=== PATIENT | male | born 1995 | race Hispanic/Latino ===

== ENCOUNTER 2021-12-14 22:02 | Emergency (ER) | payer BC, SELFPAY ==
[2021-12-14] MEDS ORDERED: BACI/NEOMYCIN/POLY OINT 15GM TOP ONE (22:32)
[2021-12-14] MEDS ORDERED: LIDOCAINE 1% MPF 5 ML VIAL ONE (22:32)
[2021-12-14] MEDS ORDERED: CEFTRIAXONE 1000 MG/VIAL ONE (22:32)
[2021-12-14] MEDS ORDERED: ACETAMINOPHEN 500 MG TAB ONE (22:32)
--- NOTE | 2021-12-14 22:41 | ER ---
Nurse's Notes [facility] Name: Dave Rucker Age: 26 yrs Sex: Male : 1995 Arrival Date: 12/14/2021 Time: 22:07 Bed 18 Private MD: Diagnosis: Infected right middle middle finger Presentation: 12/14 22:13 Chief complaint: Patient states: "It looked it poison raffy since last Wednesday, but tw5 yesterday it started looking weird. Today my hand started to swell, and it pain has been shooting up my arm pit.". Coronavirus screen: Vaccine status: Patient reports being unvaccinated. Ebola Screen: Patient negative for fever greater than or equal to 101.5 degrees Fahrenheit, and additional compatible Ebola Virus Disease symptoms Patient denies exposure to infectious person. Patient denies travel to an Ebola-affected area in the 21 days before illness onset. Initial Sepsis Screen: Does the patient meet any 2 criteria? No. Patient's initial sepsis screen is negative. Does the patient have a suspected source of infection? Yes: Skin breakdown/wound. Risk Assessment: Do you want to hurt yourself or someone else? Patient reports no desire to harm self or others. Onset of symptoms is unknown. 22:13 Method Of Arrival: Ambulatory tw5 22:13 Acuity: CARSON 3 tw5 Triage Assessment: 22:14 General: Appears in no apparent distress. Behavior is calm, cooperative, appropriate tw5 for age. Pain: Pain currently is 6 out of 10 on a pain scale. Derm: Wound noted palmar aspect of proximal phalanx of right middle finger. Historical: - Allergies: 22:14 PENICILLINS; tw5 - Home Meds: 22:14 None [Active]; tw5 - PMHx: 22:14 None; tw5 - PSHx: 22:14 None; tw5 - Immunization history:: Flu vaccine is up to date. - Social history:: Smoking status: Patient denies any tobacco usage or history of. Screenin:16 Abuse screen: Denies threats or abuse. Denies injuries from another. Nutritional tw5 screening: No deficits noted. Nutritional screening: No deficits noted. Tuberculosis screening: No symptoms or risk factors identified. Fall Risk None identified. Assessment: 22:26 Reassessment: Patient appears in no apparent distress at this time. No changes from lg3 previously documented assessment. Patient and/or family updated on plan of care and expected duration. Pain level reassessed. Patient is alert, oriented x 3, equal unlabored respirations, skin warm/dry/pink. Derm: Rash noted that is draining pus, itchy, papular, raised, on right hand and palmar aspect of proximal phalanx of right middle finger. Vital Signs: 22:12 BP 118 / 71; Pulse 98; Resp 18; Temp 98.6(O); Pulse Ox 98% on R/A; Weight 90.72 kg; tw5 Height 5 ft. 6 in. (167.64 cm); 23:02 BP 122 / 76; Pulse 88; Temp 97.4(TE); Pulse Ox 100% on R/A; Pain 0/10; lg3 22:12 Body Mass Index 32.28 (90.72 kg, 167.64 cm) tw5 ED Course: 22:07 Patient arrived in ED. es 22:14 Triage completed. tw5 22:14 Arm band placed on right wrist. tw5 22:17 Amadeo Michelle MD is Attending Physician. pkl 22:26 Patient has correct armband on for positive identification. Bed in low position. Call lg3 light in reach. Side rails up X 1. 22:26 No provider procedures requiring assistance completed. Patient did not have IV access lg3 during this emergency room visit. 22:27 Tyron Rivas, RN is Primary Nurse. sv1 Administered Medications: 22:45 Drug: Rocephin (cefTRIAXone) 1 grams Route: IM; Site: left deltoid; lg3 22:46 Follow up: Response: No adverse reaction lg3 22:45 Drug: Tylenol 1000 mg Route: PO; lg3 22:46 Follow up: Response: No adverse reaction lg3 Outcome: 22:40 Discharge ordered by . pkl 23:02 Discharged to home ambulatory. lg3 23:02 Condition: stable 23:02 Discharge instructions given to patient, Prescriptions given X 1. 23:07 Patient left the ED. lg3 Signatures: Amadeo Michelle MD MD pkl Eileen Zamarripa Lacie, RN RN lg3 Doug Arianne tw5 Tyron Rivas, EMA RN sv1 Corrections: (The following items were deleted from the chart) 22:19 22:13 Acuity: CARSON 4 tw5 tw5
--- NOTE | 2021-12-14 22:41 | EDPHYS ---
Physician Documentation [facility] Name: Dave Rucker Age: 26 yrs Sex: Male : 1995 Arrival Date: 12/14/2021 Time: 22:07 Bed 18 Private MD: ED Physician Amadeo Michelle HPI: 12/14 22:28 This 26 yrs old Male presents to ER via Ambulatory with complaints of Blister pkl on finger, pain in arm pit. 22:28 The patient or guardian reports Patient noticed blister like lesions on the ulnar pkl aspect of the proximal phalanx right middle finger about 6 days ago. Yesterday the area became infected and painful. Patient said the pain is radiating up into his right arm pit.. Historical: - Allergies: 22:14 PENICILLINS; tw5 - Home Meds: 22:14 None [Active]; tw5 - PMHx: 22:14 None; tw5 - PSHx: 22:14 None; tw5 - Immunization history:: Flu vaccine is up to date. - Social history:: Smoking status: Patient denies any tobacco usage or history of. ROS: 22:28 Eyes: Negative for injury, pain, redness, and discharge, ENT: Negative for injury, pkl pain, and discharge, Neck: Negative for injury, pain, and swelling, Cardiovascular: Negative for chest pain, palpitations, and edema, Respiratory: Negative for shortness of breath, cough, wheezing, and pleuritic chest pain, Abdomen/GI: Negative for abdominal pain, nausea, vomiting, diarrhea, and constipation, Back: Negative for injury and pain, : Negative for injury, bleeding, discharge, and swelling. 22:28 MS/extremity: Positive for infected area ulnar aspect proximal phalanx right middle finger.. 22:28 Neuro: Negative for altered mental status, loss of consciousness. Exam: 22:28 Head/Face: Normocephalic, atraumatic. Eyes: Pupils equal round and reactive to light, pkl extra-ocular motions intact. Lids and lashes normal. Conjunctiva and sclera are non-icteric and not injected. Cornea within normal limits. Periorbital areas with no swelling, redness, or edema. ENT: Nares patent. No nasal discharge, no septal abnormalities noted. Tympanic membranes are normal and external auditory canals are clear. Oropharynx with no redness, swelling, or masses, exudates, or evidence of obstruction, uvula midline. Mucous membranes moist. Neck: Trachea midline, no thyromegaly or masses palpated, and no cervical lymphadenopathy. Supple, full range of motion without nuchal rigidity, or vertebral point tenderness. No Meningismus. Chest/axilla: Normal chest wall appearance and motion. Nontender with no deformity. No lesions are appreciated. Cardiovascular: Regular rate and rhythm with a normal S1 and S2. No gallops, murmurs, or rubs. Normal PMI, no JVD. No pulse deficits. Respiratory: Lungs have equal breath sounds bilaterally, clear to auscultation and percussion. No rales, rhonchi or wheezes noted. No increased work of breathing, no retractions or nasal flaring. Abdomen/GI: Soft, non-tender, with normal bowel sounds. No distension or tympany. No guarding or rebound. No evidence of tenderness throughout. Back: No spinal tenderness. No costovertebral tenderness. Full range of motion. 22:28 Musculoskeletal/extremity: Extremities: grossly normal except: noted in the right middle finger: pain, swelling, infected area noted. 22:28 Neuro: Orientation: is normal, Mentation: is normal, Cranial nerves: grossly normal, pkl Cerebellar function: is grossly normal, Motor: is normal, Sensation: is normal, Gait: is steady. Vital Signs: 22:12 BP 118 / 71; Pulse 98; Resp 18; Temp 98.6(O); Pulse Ox 98% on R/A; Weight 90.72 kg; tw5 Height 5 ft. 6 in. (167.64 cm); 23:02 BP 122 / 76; Pulse 88; Temp 97.4(TE); Pulse Ox 100% on R/A; Pain 0/10; lg3 22:12 Body Mass Index 32.28 (90.72 kg, 167.64 cm) tw5 MDM: 22:17 Patient medically screened. pkl 22:39 Data reviewed: vital signs. pkl Administered Medications: 22:45 Drug: Rocephin (cefTRIAXone) 1 grams Route: IM; Site: left deltoid; lg3 22:46 Follow up: Response: No adverse reaction lg3 22:45 Drug: Tylenol 1000 mg Route: PO; lg3 22:46 Follow up: Response: No adverse reaction lg3 Disposition Summary: 12/14/21 22:40 Discharge Ordered Location: Home pkl Problem: new pkl Symptoms: are unchanged pkl Condition: Stable pkl Diagnosis - Infected right middle middle finger pkl Followup: pkl - With: Private Physician - When: 2 - 3 days - Reason: Re-evaluation by your physician Discharge Instructions: - Discharge Summary Sheet pkl Forms: - Medication Reconciliation Form pkl - Thank You Letter pkl - Antibiotic Education pkl - Prescription Opioid Use pkl Prescriptions: - Clindamycin HCl 300 mg Oral Capsule - take 1 capsule by ORAL route every 6 hours for 10 days; 28 capsule; Refills: 0, pkl Product Selection Permitted Signatures: Amadeo Michelle MD MD pkl Nadja Henley RN RN lg3 Arianne Camacho tw5
[2021-12-15 04:53] VITALS: BP 122/76; TEMP 97.4; O2SAT 100
== END 2021-12-14 23:07 | disposition home or self-care (01) ==
LOC: ER 22:02
DX: L08.9 Local infection of the skin and subcutaneous tissue, unspecified (principal); Z88.0 Allergy status to penicillin
CPT/HCPCS: 96372; 99283

== ENCOUNTER 2022-04-05 16:39 | Emergency (ER) | payer SELFPAY ==
[2022-04-05] MEDS ORDERED: DIAZEPAM 10 MG/2 ML INJ SYRINGE ONE (18:13)
[2022-04-05] MEDS ORDERED: KETOROLAC 30 MG/ML INJ ONE (18:13)
[2022-04-05] MEDS ORDERED: LIDOCAINE 4% PATCH ONE (18:14)
--- NOTE | 2022-04-05 18:26 | EDPHYS ---
Physician Documentation [facility] Name: Dave Rucker Age: 27 yrs Sex: Male : 1995 Arrival Date: 04/05/2022 Time: 16:40 Bed 6 Private MD: ED Physician Kimmy Mcneal HPI: 04/05 18:10 This 27 yrs old Male presents to ER via Ambulatory with complaints of Neck and cp Upper Back Pain. 18:10 The patient or guardian complains of decreased range of motion, pain, that is acute, cp tenderness, stiffness. The symptoms are located right side lateral neck. Onset: The symptoms/episode began/occurred yesterday morning. Context: The neck injury/problem resulted from from unknown cause. Associated signs and symptoms: The patient has no apparent associated signs or symptoms. 18:10 The pain does not radiate. cp 18:10 Modifying factors: the symptoms are aggravated by turning head to right. Severity of cp symptoms: in the emergency department the symptoms are unchanged, despite home interventions. Historical: - Allergies: 17:09 PENICILLINS; jb4 - Home Meds: 17:09 None [Active]; jb4 - PMHx: 17:09 None; jb4 - PSHx: 17:09 None; jb4 - Immunization history:: Adult Immunizations up to date. - Social history:: Smoking status: Patient denies any tobacco usage or history of. Patient uses alcohol, occasionally. Patient/guardian denies using street drugs, but used to use street drugs. ROS: 18:15 Neck: Positive for pain with movement, pain at rest, stiffness, tenderness, Negative cp for injury or acute deformity, bony tenderness. 18:15 Eyes: Negative for injury, pain, redness, and discharge. cp 18:15 Constitutional: Negative for body aches, chills, fever, poor PO intake. 18:15 ENT: Negative for drainage from ear(s), ear pain, sore throat, difficulty swallowing, difficulty handling secretions. 18:15 Cardiovascular: Negative for chest pain, edema, palpitations. 18:15 Respiratory: Negative for cough, shortness of breath, wheezing. 18:15 Abdomen/GI: Negative for abdominal pain, nausea, vomiting, and diarrhea. 18:15 Back: Negative for pain at rest, pain with movement. 18:15 Neuro: Negative for altered mental status, headache. 18:15 All other systems are negative. Exam: 18:20 Constitutional: The patient appears in no acute distress, alert, awake, non-toxic, well cp developed, well nourished, uncomfortable. 18:20 Head/Face: Normocephalic, atraumatic. cp 18:20 Eyes: Periorbital structures: appear normal, Conjunctiva: normal, no exudate, no injection, Sclera: no appreciated abnormality, Lids and lashes: appear normal, bilaterally. 18:20 Neck: C-spine: vertebral tenderness, is not appreciated, crepitus, is not appreciated, ROM/movement: pain, that is moderate, with rotation to the right, limited range of motion, that is moderate, when rotating to the right, Meningeal signs: are not present, Lymph nodes: no appreciated lymphadenopathy. 18:20 Chest/axilla: Inspection: normal. 18:20 Cardiovascular: Rate: normal, Rhythm: regular, Pulses: Pulses are 2+ in right radial artery and left radial artery. 18:20 Respiratory: the patient does not display signs of respiratory distress, Respirations: normal, no use of accessory muscles, no retractions, labored breathing, is not present, Breath sounds: are clear throughout, no decreased breath sounds, no stridor, no wheezing. 18:20 Abdomen/GI: Exam negative for discomfort, distension, guarding, Inspection: abdomen appears normal. 18:20 Back: pain, is absent, ROM is normal. 18:20 Musculoskeletal/extremity: Exam is negative for decreased range of motion, deformity, injury, ROM: no acute changes. 18:20 Neuro: Orientation: to person, place \T\ time. Mentation: is normal, Motor: moves all fours, strength is normal, Sensation: is normal. Vital Signs: 17:06 BP 117 / 75; Pulse 90; Resp 16; Temp 98.0(O); Pulse Ox 96% on R/A; Weight 90.72 kg (R); jb4 Height 5 ft. 6 in. (167.64 cm) (R); Pain 8/10; 17:06 Body Mass Index 32.28 (90.72 kg, 167.64 cm) jb4 MDM: 17:43 Patient medically screened. cp 18:00 Differential diagnosis: Cervical Disc Herniation cervical strain, Spondylolisthesis cp Spondylosis subluxation, torticollis. 18:00 Counseling: I had a detailed discussion with the patient and/or guardian regarding: the cp historical points, exam findings, and any diagnostic results supporting the discharge/admit diagnosis, the need for outpatient follow up, a family practitioner, to return to the emergency department if symptoms worsen or persist or if there are any questions or concerns that arise at home. Response to treatment: the patient's symptoms have mildly improved after treatment. 18:25 Data reviewed: vital signs, nurses notes, and as a result, I will discharge patient. cp Administered Medications: 18:17 Drug: Lidoderm Patch 5 % (700 mg/patch) 1 patches Route: Topical; Site: affected area; aa5 18:39 Follow up: Response: No adverse reaction; Medication administered at discharge. jl7 18:18 Drug: Ketorolac 60 mg Route: IM; Site: left gluteus; aa5 18:39 Follow up: Response: No adverse reaction; Medication administered at discharge. jl7 18:19 Drug: Diazepam 5 mg Route: IM; Site: right gluteus; aa5 18:38 Follow up: Response: No adverse reaction; Medication administered at discharge. jl7 Disposition Summary: 04/05/22 18:26 Discharge Ordered Location: Home cp Problem: new cp Symptoms: have improved cp Condition: Stable cp Diagnosis - Cervicalgia cp Followup: cp - With: Private Physician - When: 2 - 3 days - Reason: Worsening of condition Discharge Instructions: - Discharge Summary Sheet cp - Muscle Strain cp - Neck Exercises cp - RICE Therapy for Routine Care of Injuries cp Forms: - Medication Reconciliation Form cp - Thank You Letter cp - Antibiotic Education cp - Prescription Opioid Use cp Prescriptions: - Cyclobenzaprine 10 mg Oral Tablet - take 1 tablet by ORAL route every 8 hours As needed; 20 tablet; Refills: 0, cp Product Selection Permitted - Lidoderm 5 % Topical adhesive patch,medicated - apply 1 patch by TOPICAL route once daily; 1 box; Refills: 0, Product Selection cp Permitted - Diclofenac Sodium 75 mg Oral tablet,delayed release (DR/EC) - take 1 tablet by ORAL route 2 times per day; 20 tablet; Refills: 0, Product cp Selection Permitted Signatures: Magdalena Sanchez RN RN aa5 Phu Posada PA PA Hunter Altamirano, RN RN jb4 Willow Alexis RN jl7
--- NOTE | 2022-04-05 18:26 | ER ---
Nurse's Notes [facility] Name: Dave Rucker Age: 27 yrs Sex: Male : 1995 Arrival Date: 04/05/2022 Time: 16:40 Bed 6 Private MD: Diagnosis: Cervicalgia Presentation: 04/05 17:06 Chief complaint: Patient states: yesterday morning I woke up and feel like I jerked my jb4 head and now I am having trouble moving my head. It started in my shoulder and its progressing to my arm. Coronavirus screen: At this time, the client does not indicate any symptoms associated with coronavirus-19. Ebola Screen: No symptoms or risks identified at this time. Initial Sepsis Screen: Does the patient meet any 2 criteria? No. Patient's initial sepsis screen is negative. Does the patient have a suspected source of infection? No. Patient's initial sepsis screen is negative. Risk Assessment: Do you want to hurt yourself or someone else? Patient reports no desire to harm self or others. Onset of symptoms was April 05, 2022. Transition of care: patient was not received from another setting of care. 17:06 Method Of Arrival: Ambulatory jb4 17:06 Acuity: CARSON 4 jb4 Historical: - Allergies: 17:09 PENICILLINS; jb4 - Home Meds: 17:09 None [Active]; jb4 - PMHx: 17:09 None; jb4 - PSHx: 17:09 None; jb4 - Immunization history:: Adult Immunizations up to date. - Social history:: Smoking status: Patient denies any tobacco usage or history of. Patient uses alcohol, occasionally. Patient/guardian denies using street drugs, but used to use street drugs. Screenin:45 Abuse screen: Denies threats or abuse. Denies injuries from another. Nutritional jl7 screening: No deficits noted. Tuberculosis screening: No symptoms or risk factors identified. Fall Risk None identified. Assessment: 17:45 General: Appears in no apparent distress. uncomfortable, Behavior is calm, cooperative, jl7 appropriate for age. Pain: Complains of pain in posterior cervical area Pain currently is 8 out of 10 on a pain scale. Neuro: Level of Consciousness is awake, alert, obeys commands, Oriented to person, place, time, situation. Cardiovascular: Patient's skin is warm and dry. Respiratory: Airway is patent Respiratory effort is even, unlabored, Respiratory pattern is regular, symmetrical. Derm: Skin is pink, warm \T\ dry. 18:19 Reassessment: Patient is alert, oriented x 3, equal unlabored respirations, skin aa5 warm/dry/pink. Vital Signs: 17:06 BP 117 / 75; Pulse 90; Resp 16; Temp 98.0(O); Pulse Ox 96% on R/A; Weight 90.72 kg (R); jb4 Height 5 ft. 6 in. (167.64 cm) (R); Pain 8/10; 17:06 Body Mass Index 32.28 (90.72 kg, 167.64 cm) jb4 ED Course: 16:40 Patient arrived in ED. am2 17:09 Triage completed. jb4 17:09 Arm band placed on right wrist. jb4 17:33 Phu Posada PA is PHCP. cp 17:33 Kimmy Mcneal MD is Attending Physician. cp 17:45 Willow Alexis RN is Primary Nurse. jl7 17:45 Patient has correct armband on for positive identification. jl7 18:37 No provider procedures requiring assistance completed. Patient did not have IV access jl7 during this emergency room visit. Administered Medications: 18:17 Drug: Lidoderm Patch 5 % (700 mg/patch) 1 patches Route: Topical; Site: affected area; aa5 18:39 Follow up: Response: No adverse reaction; Medication administered at discharge. jl7 18:18 Drug: Ketorolac 60 mg Route: IM; Site: left gluteus; aa5 18:39 Follow up: Response: No adverse reaction; Medication administered at discharge. jl7 18:19 Drug: Diazepam 5 mg Route: IM; Site: right gluteus; aa5 18:38 Follow up: Response: No adverse reaction; Medication administered at discharge. jl7 Medication: 17:45 VIS not applicable for this client. jl7 Outcome: 18:26 Discharge ordered by . cp 18:37 Discharged to home ambulatory. jl7 18:37 Condition: stable 18:37 Discharge instructions given to patient, Instructed on discharge instructions, follow up and referral plans. medication usage, Demonstrated understanding of instructions, follow-up care, medications, Prescriptions given X 3. 18:38 Patient left the ED. jl7 Signatures: Magdalena Sanchez, RN RN aa5 Phu Posada PA PA cp Bryson, James RN RN jb4 Willow Alexis RN RN jl7 Jelena Burton am2
[2022-04-05 18:44] VITALS: BP 117/75; TEMP 98; O2SAT 96
== END 2022-04-05 18:38 | disposition home or self-care (01) ==
LOC: ER 16:39
DX: M54.2 Cervicalgia (principal); Z88.0 Allergy status to penicillin
CPT/HCPCS: 96372; 99283; J3360